=== PATIENT | male | born 1940 | race Caucasian/White ===

== ENCOUNTER 2023-09-23 12:10 | Emergency (ER) | payer MEDICARE, BC ==
[~2023-09-23] VITALS: Ht 175.3 cm; Wt 84.0 kg
[~2023-09-23 12:10] MED LIST: ALLO100T49 PO; APIX2.5T PO; ATOR40TA PO; CARV-50 PO; CHOL50004 PO; EMPA10TA PO; FURO40TA4 PO; LEVO100T PO; LIOT25TA12 PO; MEGE20TA3 PO; POTA10TA15 PO; VITA-67 PO
[2023-09-23 14:31] LABS: BASOPHILS % (AUTO) 0.2 % (0-1); EOSINOPHILS % (AUTO) 0.2 % (0-6); HEMOGLOBIN 11.4 g/dl (14.0-17.9); LYMPHOCYTES # (AUTO) 0.4 X10'3 (1.1-4.8); LYMPHOCYTES % (AUTO) 9.1 % (21-51); MEAN CORPUSCULAR HEMOGLOBIN 34.5 PG (27.0-31.0); MEAN CORPUSCULAR HGB CONC 33.4 g/dL (33.0-36.5); MEAN CORPUSCULAR VOLUME 103.2 FL (78-98); MEAN PLATELET VOLUME 8.6 FL (7.4-10.4); MONOCYTES # (AUTO) 0.3 X10'3 (0-0.9); MONOCYTES % (AUTO) 6.8 % (2-12); NEUTROPHILS % (AUTO) 83.7 % (42-75); PLATELET COUNT 150 X10'3 (140-440); RED CELL DISTRIBUTION WIDTH 14.9 % (11.5-14.5); WHITE BLOOD COUNT 4.8 X10'3 (4.5-11.0)
[2023-09-23 14:43] LABS: ALANINE AMINOTRANSFERASE 30 U/L (12-78); ALBUMIN 2.7 G/DL (3.4-5.0); ALBUMIN/GLOBULIN RATIO 0.7 (1.1-1.5); ALKALINE PHOSPHATASE 72 IU/L (46-116); ANION GAP 7 (8-16); ASPARTATE AMINO TRANSFERASE 30 U/L (10-37); BILIRUBIN,TOTAL 0.9 MG/DL (0.1-1.0); BLOOD UREA NITROGEN 33 MG/DL (7-18); BUN/CREATININE RATIO 23.2 (10.0-20.0); CALCIUM 8.2 MG/DL (8.5-10.1); CHLORIDE 104 MMOL/L (99-107); CREATININE 1.42 MG/DL (0.60-1.10); GLUCOSE 114 MG/DL (70-104); POTASSIUM 4.2 MMOL/L (3.5-5.1); SODIUM 135 MMOL/L (135-145); TOTAL CARBON DIOXIDE 23.8 MMOL/L (24-32); TOTAL PROTEIN 6.6 G/DL (6.4-8.2); eCRCL 41 ML/MIN; eGFR 48 ML/MIN
[2023-09-23 16:07] LABS: BILIRUBIN,URINE NEGATIVE (Neg); CLARITY,URINE CLEAR (Clear); COLOR,URINE YELLOW (Yellow); GLUCOSE, URINE >=1000 mg/dl (Neg); KETONES,URINE 15 mg/dl (Neg); LEUKOCYTE ESTERASE ,URINE NEGATIVE (Neg); NITRITES, URINE NEGATIVE (Neg); OCCULT BLOOD,URINE NEGATIVE (Neg); PH,URINE 5.5 (4.8-8.0); PROTEIN,URINE 30 mg/dl (Neg); UROBILINOGEN,URINE 0.2 E.U/dL (0.2-1.0)
[2023-09-23 16:09] LABS: UA COLLECTION TYPE CLN CATCH MIDSTREAM
[2023-09-23 16:29] LABS: BACTERIA,URINE FEW /HPF (Neg); FINE GRANULAR CAST 0-3 /LPF (NEGATIVE); MUCUS STRANDS FEW /LPF (Neg); RBC,URINE NONE SEEN /HPF (0-2); SQUAMOUS EPITHELIAL CELL,UR FEW /LPF (FEW); WBC,URINE 0-4 /HPF (0-4)
[2023-09-23 16:49] VITALS: BP 115/81; PULSE 100; RESP 16; TEMP 98.9; O2SAT 100
== END 2023-09-23 16:51 | disposition home or self-care (01) ==
LOC: ER 12:11
DX: R53.1 Weakness (principal); D53.9 Nutritional anemia, unspecified; E78.00 Pure hypercholesterolemia, unspecified; I10 Essential (primary) hypertension; Z79.899 Other long term (current) drug therapy
CPT/HCPCS: 36415; 80053; 81001; 84484; 85025; 93005; 99284